=== PATIENT | female | born 1995 | race African-American/Black ===

== ENCOUNTER 2017-08-14 04:19 | Inpatient (IN) ==
[~2017-08-14 04:19] MED LIST: *HR* Oxytocin 10 UNIT/ML VIAL IM ONE; Famotidine 20 MG/2 ML VIAL IVP PRN; Naloxone 0.4 MG/ML INJ IVP PRN; Ondansetron 4 MG/2 ML VIAL IVP PRN
--- NOTE | 2017-08-14 04:20 | OB/GYN Procedure Note ---
Delivery - Delivery Date: 08/14/17 Provider: Izabella Mittal Intrapartum events: precipitous labor- <3hr Delivery induction: none Delivery monitor: external FHT, external uterine Anesthesia: none Estimated Blood Loss: 100 - (s) A Delivery Date: 08/14/17 Delivery Time: 03:39 Presentation: vertex Position: NOEMI Route of delivery: Gender: Female Viability: Viable Pounds: 4 Ounces: 7 Weight Gram: 2.025 kg at 1 minute: 8 at 5 mins: 7 Shoulder Dystocia: not encountered Specimens collected: cord blood Placenta: spontaneous Cord: 3 umbilical vessels - Repair Episiotomy: none Laceration Description: None - Complications Delivery complications: none Delivery comments: Patient arrived to unit with on perineum and began pushing. AROM for moderate amount of clear fluid. of viable female infant in the NOEMI position. No nuchal cord, no shoulder dystocia, and no meconium. Cord double clamped and cut, passed off to Special Care Nursery Team. Apgars 8 and 7 at one and five minutes of age. Perineum intact upon visual inspection. IM pitocin given due to no IV access. Dr Courtney called to room for delivery of placenta. 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 Patient given 800 mcg of Cytotec and IM Pitocin prior to my arrival. Placenta at introitus with large clot. With gentle traction and uterine support there was spontaneous delivery of the placenta which is being sent to pathology for further evaluation. Examination of the perineum, vagina and cervix revealed no lacerations. The uterus was firm at U -5. Estimated blood loss 100 mL's. Complications none
[2017-08-14 04:36] LABS: Amphetamine Screen,Urine Positive ng/mL (Cutoff=1000); Barbiturate Screen,Urine Negative ng/mL (Cutoff=200); Benzodiazepines Screen,Urine Negative ng/mL (Cutoff=200); Cannabinoid Screen,Urine Positive ng/mL (Cutoff = 50); Cocaine Screen,Urine Negative ng/mL (Cutoff= 300); Opiate Screen,Urine Positive ng/mL (Cutoff=300); Phencyclidine Screen,Urine Negative ng/mL (Cutoff=25)
[2017-08-14 04:40] LABS: Basophils % 0.3 %; Eosinophils # 0.1 K/mcL (0.0-0.6); Eosinophils % 0.3 %; Hematocrit 44.4 % (35.3-44.9); Hemoglobin 14.8 g/dL (11.5-15.4); Immature Granulocytes % 0.3 % (0-4); Mean Corpuscular HGB Conc 33.3 g/dL (31.6-35.5); Mean Corpuscular Hemoglobin 27.1 pg (28.0-33.3); Mean Corpuscular Volume 81.3 fL (83.0-100.0); Mean Platelet Volume 9.3 fL (9.4-12.4); Monocytes # 0.5 K/mcL (0.0-1.3); Monocytes % 3.2 %; Neutrophils # 11.8 K/mcL (1.6-8.9); Platelet Count 265 K/mcL (140-400); Red Blood Count 5.46 M/mcL (3.82-4.97); Red Cell Distribution Width 12.5 % (11.5-14.5); Segmented Neutrophils % 81.9 %
--- NOTE | 2017-08-14 04:55 | OB/GYN History & Physical ---
Date of Encounter: 08/14/17 Time of Encounter: 04:38 Assessment and Plan (1) 32 weeks gestation of Current visit: Yes Status: Acute Admit for labor Monitor blood pressure PIH labs POC per consult with Dr Courtney (2) Polysubstance (including opioids) dependence, daily use Current visit: Yes Status: Acute Social work consulted History of Present Illness Chief complaint: Labor HPI: Ms. Manley is a 22 year old at 33 weeks and 0 days gestation by third trimester ultrasound presents to labor and delivery in labor. She states she sought care late in due to being "scared" in relation to her polysubstance abuse. She states she does not have custody of her other children as they live with their fathers. She states she took a percocet earlier in the evening when she was in pain; she denies having a drug of choice and will "take what she I can get". She admits to being homeless, but is staying with her current boyfriend. She has had one visit with this . Her labs are as follows HIV NR RPR Negative Rubella positive Varicella positive Blood type B + Hep B NR Hep C NR Past Med Surg Social Fam HX - Past Medical History Medical history: non-contributory Psychiatric history: depression - Past Surgical History Surgical History: no surgical history - Social History Smoking Status: Current every day smoker Smokeless Tobacco Status: No Alcohol use: none Drug use: none - Family History Mother Living Status: Still Living Hx Family Cardiac Disorders: Yes (heart attack) Hx Family Respiratory Disorders: Yes (COPD) Hx Family Cancer: No Hx Family GI Disorders: No Hx Family Endocrine Disorder: No Hx Family Neuromuscular Disorders: No Hx Family Neurologic Disorders: No Hx Family HEENT Disorders: No Hx Family Autoimmune Disorders: No Obstetrical History - Pregnancies : 3 Para: 2 Term: 2 : 0 Ab's: 0 Livin Medications and Allergies Azithromycin [Zithromax Tri-Rajiv] 500 mg PO ONCE #2 tablet 01/27/17 [Rx] Clindamycin HCl [Cleocin HCl] 300 mg PO BID #14 cap 01/27/17 [Rx] Vit/Iron Fumarate/FA [ Tablet] 1 each PO DAILY #30 tablet 01/27 [Rx] 3 Allergy/AdvReac Type Severity Reaction Status Date / Time No Known Allergies Allergy Verified 02/27/16 08:16 Review of System OB All systems PM: reviewed and no additional remarkable complaints except as stated Exam - Constitutional Constitutional: well developed, well nourished, no acute distress, thin - HEENT HEENT: Normocephaly, Mucus Membranes Moist - Lungs Respiratory exam: CTAB - Cardiovascular Cardiovascular exam: RRR, +S1, +S2 - Abdomen Abdomen: Present: bowel sounds normal, gravid, non tender - Extremities Extremities exam: normal capillary refill, normal inspection, radial pulses palpable and symmetrical Deep Tendon Reflex Grade: 3+ Normal But Brisk - Vulva Vulva: bilateral: normal - Vagina Vagina: Present: normal moisture - Cervix Dilation: 10 Effacement: 100 Station: +3 - Uterus Uterus exam: Present: normal size, normal contour - Anus/Rectum Anus/Rectum: Present: normal perianal skin Results All other labs normal. - VTE Reasons for not Prescribing Prophylaxis: Treatment not Indicated - Low risk for VTE
[2017-08-14 04:59] LABS: Alanine Aminotransferase 75 Units/L (7-52); Aspartate Amino Transferase 66 Units/L (13-39); BUN/Creatinine Ratio 12 (6-26); Blood Urea Nitrogen 9 mg/dL (6-20); Lactate Dehydrogenase 224 Units/L (140-271); Uric Acid 8.3 mg/dL (2.3-7.6); eGFR For African Americans > 60 (> 60); eGFR For Non-African Americans > 60 (> 60)
[2017-08-14] MEDS ORDERED: hydrALAZINE 10 MG TABLET PO ONE ×2 (06:28→06:29)
[2017-08-14] MEDS ORDERED: Oxytocin 20 units/ LR 1000 mL 20 UNIT/1,000 ML BAG IVC SCH (06:49)
[2017-08-14] MEDS ORDERED: Measles/Mumps/Rubella Vacc 0.5 ML VIAL SQ PRN (06:49)
[2017-08-14] MEDS ORDERED: Acetaminophen 325 MG TABLET PO PRN (06:49)
[2017-08-14] MEDS: Ibuprofen 600 MG TABLET PO SCH ×4 (07:04→20:21)
[2017-08-14] MEDS ORDERED: Prenatal Vit/FA 1 EACH TABLET PO SCH (09:00)
[2017-08-14] MEDS ORDERED: *HR* Labetalol 20 MG/4 ML SYRINGE IVP STA ×2 (09:13→09:57)
--- NOTE | 2017-08-14 09:24 | Event Note ---
Date of Encounter: 08/14/17 Time of Encounter: 09:20 Notified of Patient's BPs and lab results. Discussed with Dr. Funes. Will start Magnesium sulfate with 4 gram loading dose and then 2 grams per hour. Will initiate bolaños catheter for strict I&Os. IV labetalol 20mg IVP to be given. Discussed POC with patient. Patient is Alert and Oriented Lungs: CTAB Heart: RRR DTRs: 1+ no clonus Extremities:No edema Abdomen: +BS, FF @ U/1
[2017-08-14] MEDS ORDERED: Calcium Gluconate 1,000 MG/10 ML VIAL IVPB ONE (10:04)
[2017-08-14 10:26] LABS: Alanine Aminotransferase 73 Units/L (7-52); Aspartate Amino Transferase 67 Units/L (13-39); BUN/Creatinine Ratio 14 (6-26); Blood Urea Nitrogen 9 mg/dL (6-20); Lactate Dehydrogenase 228 Units/L (140-271); Uric Acid 8.8 mg/dL (2.3-7.6); eGFR For African Americans > 60 (> 60); eGFR For Non-African Americans > 60 (> 60)
[2017-08-14] MEDS: Magnesium Sulfate 20 gm/500mL 20 GM/500 ML IV.SOLN IVC SCH ×2 (10:29→20:21)
[2017-08-14] MEDS: Ringers Solution, Lactated 1,000 ML ONE ×2 (10:29→23:41)
[2017-08-14 10:53] LABS: Basophils % 0.3 %; Eosinophils % 0.1 %; Hematocrit 36.3 % (35.3-44.9); Immature Granulocytes % 0.4 % (0-4); Lymphocytes # 2.4 K/mcL (0.6-4.6); Lymphocytes % 17.8 %; Mean Corpuscular HGB Conc 33.3 g/dL (31.6-35.5); Mean Corpuscular Hemoglobin 26.8 pg (28.0-33.3); Mean Corpuscular Volume 80.3 fL (83.0-100.0); Mean Platelet Volume 9.9 fL (9.4-12.4); Monocytes # 0.6 K/mcL (0.0-1.3); Neutrophils # 10.6 K/mcL (1.6-8.9); Platelet Count 273 K/mcL (140-400); Red Blood Count 4.52 M/mcL (3.82-4.97); Red Cell Distribution Width 12.2 % (11.5-14.5); Segmented Neutrophils % 77.4 %
[2017-08-14 10:56] LABS: Hemoglobin 12.1 g/dL (11.5-15.4)
[2017-08-14] MEDS ORDERED: miSOPROStol 100 MCG TABLET PO ONE (14:55)
[2017-08-14] MEDS ORDERED: Ringers Solution, Lactated 1,000 ML ONE (23:38)
[2017-08-15 04:37] LABS: Basophils % 0.3 %; Eosinophils # 0.1 K/mcL (0.0-0.6); Hematocrit 35.1 % (35.3-44.9); Hemoglobin 11.8 g/dL (11.5-15.4); Immature Granulocytes % 0.3 % (0-4); Lymphocytes # 2.9 K/mcL (0.6-4.6); Lymphocytes % 41.7 %; Mean Corpuscular HGB Conc 33.6 g/dL (31.6-35.5); Mean Corpuscular Hemoglobin 27.4 pg (28.0-33.3); Mean Corpuscular Volume 81.6 fL (83.0-100.0); Mean Platelet Volume 9.6 fL (9.4-12.4); Monocytes # 0.5 K/mcL (0.0-1.3); Monocytes % 7.8 %; Neutrophils # 3.3 K/mcL (1.6-8.9); Platelet Count 229 K/mcL (140-400); Red Cell Distribution Width 12.5 % (11.5-14.5); Segmented Neutrophils % 47.9 %
[2017-08-15 05:24] LABS: Alanine Aminotransferase 56 Units/L (7-52); Aspartate Amino Transferase 34 Units/L (13-39); BUN/Creatinine Ratio 9 (6-26); Blood Urea Nitrogen 6 mg/dL (6-20); Lactate Dehydrogenase 230 Units/L (140-271); Uric Acid 6.7 mg/dL (2.3-7.6); eGFR For African Americans > 60 (> 60); eGFR For Non-African Americans > 60 (> 60)
[2017-08-15] MEDS: Magnesium Sulfate 20 gm/500mL 20 GM/500 ML IV.SOLN IVC SCH (06:43)
[2017-08-15 07:48] VITALS: BP 146/99
--- NOTE | 2017-08-15 08:30 | Discharge Summary ---
Date of Encounter: 08/15/17 Time of Encounter: 08:27 - Discharge Diagnosis (1) Vaginal delivery Priority: Primary Status: Acute Comments: Routine care. Plan to discharge tomorrow. Patient wishes to sign out Against Medical Advice. She is meeting milestones and desires depo for contraception prior to leaving. (2) Pre-eclampsia Priority: Secondary Status: Acute Comments: Plan to continue magnesium sulfate for 24 hours Continue Labetalol po as scheduled Patient wishes to sign out against medical advice prior to 24 hrs Will rx Labetalol 200mg BID. Risk of seizure from PP preeclampsia discussed at length with pt. Return precautions given. Risk of stroke or from poorly controlled hypertension discussed at length as well. Pt verbalizes understanding of risks. POC discussed with Dr. Courtney. Qualifiers: Trimester: unspecified trimester Qualified Code(s): O14.90 - Unspecified pre-eclampsia, unspecified trimester (3) Polysubstance (including opioids) dependence, daily use Priority: Secondary Status: Acute Comments: Patient offered medical management and Subutex therapy in office. Patient declines. - Discharge Medications Prescriptions: Docusate [Colace] 100 mg PO BID #30 capsule Labetalol HCl 200 mg PO BID #60 tablet Home Medications: Azithromycin [Zithromax Tri-Rajiv] 500 mg PO ONCE #2 tablet 01/27/17 [Rx] Clindamycin HCl [Cleocin HCl] 300 mg PO BID #14 cap 01/27/17 [Rx] Vit/Iron Fumarate/FA [ Tablet] 1 each PO DAILY #30 tablet 01/27 [Rx] Acetaminophen [Tylenol] 650 mg PO Q6HR PRN tablet 08/15/17 [Rx] Docusate [Colace] 100 mg PO BID #30 capsule 08/15/17 [Rx] Ibuprofen [Motrin] 600 mg PO Q6HR tablet 08/15/17 [Rx] Labetalol HCl 200 mg PO BID #60 tablet 08/15/17 [Rx] Allergies/Adverse Reactions: 3 Allergy/AdvReac Type Severity Reaction Status Date / Time No Known Allergies Allergy Verified 02/27/16 08:16 Data Procedures and tests throughout hospitalization: Laboratory Tests 08/14/17 08/14/17 08/14/17 04:18 04:30 04:30 WBC 14.4 H RBC 5.46 H Hgb 14.8 D Hct 44.4 MCV 81.3 L MCH 27.1 L MCHC 33.3 RDW 12.5 Plt Count 265 MPV 9.3 L Immature Gran % 0.3 Seg Neutrophils % 81.9 Lymphocytes % 14.0 Monocytes % 3.2 Eosinophils % 0.3 Basophils % 0.3 Neutrophils # 11.8 H Lymphocytes # 2.0 Monocytes # 0.5 Eosinophils # 0.1 Basophils # 0.0 BUN 9 Creatinine 0.74 Est GFR ( Amer) > 60 Est GFR (Non-Af Amer) > 60 BUN/Creatinine Ratio 12 Uric Acid 8.3 H AST 66 H ALT 75 H Lactate Dehydrogenase 224 Urine Opiates Screen Positive H Ur Barbiturates Screen Negative Ur Phencyclidine Scrn Negative Ur Amphetamines Screen Positive H U Benzodiazepines Scrn Negative Urine Cocaine Screen Negative U Marijuana (THC) Screen Positive H 08/14/17 08/14/17 08/15/17 09:42 09:42 04:21 WBC 13.6 H 6.9 RBC 4.52 4.30 Hgb 12.1 D 11.8 Hct 36.3 35.1 L MCV 80.3 L 81.6 L MCH 26.8 L 27.4 L MCHC 33.3 33.6 RDW 12.2 12.5 Plt Count 273 229 MPV 9.9 9.6 Immature Gran % 0.4 0.3 Seg Neutrophils % 77.4 47.9 Lymphocytes % 17.8 41.7 Monocytes % 4.0 7.8 Eosinophils % 0.1 2.0 Basophils % 0.3 0.3 Neutrophils # 10.6 H 3.3 Lymphocytes # 2.4 2.9 Monocytes # 0.6 0.5 Eosinophils # 0.0 0.1 Basophils # 0.0 0.0 BUN 9 Creatinine 0.65 Est GFR ( Amer) > 60 Est GFR (Non-Af Amer) > 60 BUN/Creatinine Ratio 14 Uric Acid 8.8 H AST 67 H ALT 73 H Lactate Dehydrogenase 228 Urine Opiates Screen Ur Barbiturates Screen Ur Phencyclidine Scrn Ur Amphetamines Screen U Benzodiazepines Scrn Urine Cocaine Screen U Marijuana (THC) Screen 08/15/17 04:21 WBC RBC Hgb Hct MCV MCH MCHC RDW Plt Count MPV Immature Gran % Seg Neutrophils % Lymphocytes % Monocytes % Eosinophils % Basophils % Neutrophils # Lymphocytes # Monocytes # Eosinophils # Basophils # BUN 6 Creatinine 0.69 Est GFR ( Amer) > 60 Est GFR (Non-Af Amer) > 60 BUN/Creatinine Ratio 9 Uric Acid 6.7 AST 34 ALT 56 H Lactate Dehydrogenase 230 Urine Opiates Screen Ur Barbiturates Screen Ur Phencyclidine Scrn Ur Amphetamines Screen U Benzodiazepines Scrn Urine Cocaine Screen U Marijuana (THC) Screen Labs on day of discharge: Labs from last 24 hours 08/15/17 08/15/17 08/14/17 04:21 04:21 09:42 WBC 6.9 RBC 4.30 Hgb 11.8 Hct 35.1 L MCV 81.6 L MCH 27.4 L MCHC 33.6 RDW 12.5 Plt Count 229 MPV 9.6 Immature Gran % 0.3 Seg Neutrophils % 47.9 Lymphocytes % 41.7 Monocytes % 7.8 Eosinophils % 2.0 Basophils % 0.3 Neutrophils # 3.3 Lymphocytes # 2.9 Monocytes # 0.5 Eosinophils # 0.1 Basophils # 0.0 BUN 6 9 Creatinine 0.69 0.65 Est GFR ( Amer) > 60 > 60 Est GFR (Non-Af Amer) > 60 > 60 BUN/Creatinine Ratio 9 14 Uric Acid 6.7 8.8 H AST 34 67 H ALT 56 H 73 H Lactate Dehydrogenase 230 228 08/14/17 09:42 WBC 13.6 H RBC 4.52 Hgb 12.1 D Hct 36.3 MCV 80.3 L MCH 26.8 L MCHC 33.3 RDW 12.2 Plt Count 273 MPV 9.9 Immature Gran % 0.4 Seg Neutrophils % 77.4 Lymphocytes % 17.8 Monocytes % 4.0 Eosinophils % 0.1 Basophils % 0.3 Neutrophils # 10.6 H Lymphocytes # 2.4 Monocytes # 0.6 Eosinophils # 0.0 Basophils # 0.0 BUN Creatinine Est GFR ( Amer) Est GFR (Non-Af Amer) BUN/Creatinine Ratio Uric Acid AST ALT Lactate Dehydrogenase Date of admission: 08/14/17 04:19 Consults: 08/14/17 06:49 Consult to Park Worker Supervisor [CONS] Routine Comment: Vaginal delivery, consult needed Consult to Electrotyper [CONS] Routine Reason for SW Consult: 32 week precipitous delivery, 1 PN visit, admits to [facility] within 12 hours of delivery Discharging clinician: Arabella Pérez Anticipated date of discharge: 08/15/17 - Patient Status Disposition: Left Against Medical Advice Condition: Good Functional capacity at discharge: independent ambulation Overall status at discharge: patient is progressing back to baseline - Discharge Instructions - Diet and Activity Activity: resume usual activities as tolerated Diet: regular diet Hospital Course Reason for admission: active labor, labor Delivery: Episiotomy: none Laceration: none Other procedures: none complications: other (pre-eclampsia) Discharge diagnosis: delivery baby: female Hospital course: Delivery Date: 08/14/17 Provider: Izabella Mittal Intrapartum events: precipitous labor- <3hr Delivery induction: none Delivery monitor: external FHT, external uterine Anesthesia: none Estimated Blood Loss: 100 - (s) A Delivery Date: 08/14/17 Delivery Time: 03:39 Presentation: vertex Position: NOEMI Route of delivery: Gender: Female Viability: Viable Pounds: 4 Ounces: 7 Weight Gram: 2.025 kg at 1 minute: 8 at 5 mins: 7 Shoulder Dystocia: not encountered Specimens collected: cord blood Placenta: spontaneous Cord: 3 umbilical vessels - Repair Episiotomy: none Laceration Description: None - Complications Delivery complications: none Delivery comments: Patient arrived to unit with on perineum and began pushing. AROM for moderate amount of clear fluid. of viable female in the NOEMI position. No nuchal cord, no shoulder dystocia, and no meconium. Cord double clamped and cut, passed off to Special Care Nursery Team. Apgars 8 and 7 at one and five minutes of age. Perineum intact upon visual inspection. IM pitocin given due to no IV access. Dr Courtney called to room for delivery of placenta. - Disposition Mom disposition: stable in LDR [place] disposition: stable in LDR - Comments Comments: Called to attend this 32 wk precipitous pcu rn delivery d/t placenta not delivering. Patient given 800 mcg of Cytotec and IM Pitocin prior to my arrival. Placenta at introitus with large clot. With gentle traction and uterine support there was spontaneous delivery of the placenta which is being sent to pathology for further evaluation. Examination of the perineum, vagina and cervix revealed no lacerations. The uterus was firm at U -5. Estimated blood loss 100 mL's. Complications none Time Attestation: Total time spent providing and/or coordinating discharge services: Exam - Constitutional Vitals: Temp Pulse Resp BP Pulse Ox 97.8 F 88 14 146/99 100 08/15/17 07:31 08/15/17 07:31 08/15/17 07:31 08/15/17 07:31 08/15/17 07:31 General appearance IM: mild distress (Patient requesting the Mag to be discontinued, IV and bolaños to be removed. Wishes to sign out AMA. Writhing around in the bed.), A&O X 3 - Respiratory Respiratory exam: Present: CTAB - Cardiovascular Cardiovascular exam IM: Present: RRR, +S1, +S2 - GI/Abdominal GI/Abdominal exam IM: normal bowel sounds, soft - Rectal Rectal exam: deferred - Uterine Tone: Firm Uterus Position: 1 Finger Below Umbilicus, Midline - Extremities Exam Extremities exam IM: Present: full ROM, normal capillary refill, normal inspection - Neurological Exam Neurological exam: alert, oriented X3, reflexes normal
[2017-08-15] MEDS ORDERED: Etonogestrel 68 MG IMPLANT IL ONE (09:07)
[2017-08-15] MEDS ORDERED: Lidocaine -MPF 1% 2 ML VIAL ID ONE (09:08)
== END 2017-08-15 10:00 | disposition left against medical advice (07) | DRG 560 ==
LOC: 1NENULAB → 1NENUOBS 06:49
PROVIDERS: ADMIT Obstetrics & Gynecology; ATTEND Obstetrics & Gynecology

== ENCOUNTER 2017-11-14 03:22 | Inpatient (IN) ==
[2017-11-14] MEDS ORDERED: Naloxone 0.4 MG/ML INJ IVP PRN (09:36)
[2017-11-14] MEDS ORDERED: Furosemide 20 MG TABLET PO PRN (09:50)
--- NOTE | 2017-11-14 09:51 | Internal Med History&Physical ---
Date of Encounter: 11/14/17 Time of Encounter: 09:47 Internal Medicine - H&P: HPI Chief complaint: Chest pain, shortness of breath Admitted From: Hospital to Hospital Transfer Plans for Post Hospital Care: Home History of present illness: Ms. Manley is a 22 year old female delivered on August 2017 at [facility] and left AMA presented to [facility] on 2017 with complaint of chest pain, shortness of breath on exertion for a few weeks and patient got admitted over there. Patient had extensive cardiac evaluation and diagnosed cardiomyopathy with LV mural thrombus, acute systolic heart failure with ejection fraction less than 15%, moderate to severe MR and TR and JAX also done. Patient was restarted on heparin drip and also Coumadin and there was planned to discharge on appropriate medication including aspirin, beta britney, lisinopril, statin, Aldactone and Coumadin but patient left AMA. On the same day patient had presyncope attack on the parking lot and brought back to [facility] and patient again left AMA but presented to [place] [facility]. Patient also had abnormal EKG therefore transferred to [facility] for further evaluation. During my evaluation patient denied chest pain and shortness of breath at this time. Patient also had a headache that considered migraine after finding CT and MRI negative at [facility]. Patient denies fever, chills, nausea, vomiting, headache better, abdominal pain , urinary complaint, abnormal vaginal discharge, diarrhea, constipation relieved. Patient had history of STD and drug abuse such as marijuana, amphetamine. Past Med Surg Social Fam HX - Past Medical History Medical history: non-contributory, other Psychiatric history: depression - Past Surgical History Surgical History: no surgical history - Social History Smoking Status: Current every day smoker Smokeless Tobacco Status: No Alcohol use: none Drug use: opiates, marijuana, methamphetamine - Family History Mother Adopted: No Family Member Ethnicity: Non- Living Status: Still Living Hx Family Cardiac Disorders: Yes (Mother has had "heart attack") Hx Family Respiratory Disorders: Yes (COPD) Hx Family Cancer: No Hx Family GI Disorders: No Hx Family Endocrine Disorder: No Hx Family Neuromuscular Disorders: No Hx Family Neurologic Disorders: No Hx Family HEENT Disorders: No Hx Family Autoimmune Disorders: No Internal Medicine - H&P: Meds Azithromycin [Zithromax Tri-Rajiv] 500 mg PO ONCE #2 tablet 01/27/17 [Rx] Clindamycin HCl [Cleocin HCl] 300 mg PO BID #14 cap 01/27/17 [Rx] Vit/Iron Fumarate/FA [ Tablet] 1 each PO DAILY #30 tablet 01/27 [Rx] Acetaminophen [Tylenol] 650 mg PO Q6HR PRN tablet 08/15/17 [Rx] Docusate [Colace] 100 mg PO BID #30 capsule 08/15/17 [Rx] Ibuprofen [Motrin] 600 mg PO Q6HR tablet 08/15/17 [Rx] Labetalol HCl 200 mg PO BID #60 tablet 08/15/17 [Rx] 3 Allergy/AdvReac Type Severity Reaction Status Date / Time No Known Allergies Allergy Verified 02/27/16 08:16 All Systems PM: A 10-system review of systems was performed and is negative for pertinent findings except as documented above in the HPI. - Constitutional Vitals: Temp Pulse Resp BP Pulse Ox 98.1 F 85 16 112/72 99 11/14/17 07:48 11/14/17 07:48 11/14/17 07:48 11/14/17 07:48 11/14/17 07:48 Exam: General appearance: No acute distress, A&O X 3 Head exam: Atraumatic Eye exam: EOMI, PERRLA ENT exam: Moist oral mucosa Neck nontender, supple Respiratory exam: Clear to auscultation bilaterally Cardiovascular exam: Regular rate and rhythm, no systolic murmur Abdominal exam: Soft, nontender, nondistended, positive bowel sounds Extremities exam: No calf tenderness, no pedal edema Present: Skin-no rash, warm, dry, intact Neurological exam: Alert, awake, oriented 3, CN II-XII intact, no focal deficits. No facial droop. Normal speech. Normal gait. Romberg sign negative - Assessment and plan (1) Cardiomyopathy Current Visit: No Status: Acute Assessment and plan: with LV thrombus. Acute systolic heart failure with ejection fraction less than 15%. Talk to on-call associate faculty and discussed the plan and he agreed to continue Lovenox, warfarin, Aldactone, lisinopril, Coreg, Lasix , statin. Daily PT/INR. Heart catheter was done on 11/10/2017 with normal coronary vessels. Review of the documents sent from [facility]. Patient had abnormal EKG therefore serial troponin will be done in continue above-mentioned medicine. 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 Will continue above-mentioned medicine. Patient will need repeat echocardiogram as per associate faculty advice. Patient has noncompliance issue therefore will also consult executive secretary social welfare. Qualifiers: Heart failure type: systolic Heart failure chronicity: unspecified Qualified Code(s): I50.20 - Unspecified systolic (congestive) heart failure (3) History of UTI Current Visit: No Status: Acute Assessment and plan: Urine culture was positive for Klebsiella and patient got treated over there but will repeat urine analysis with urine culture. Patient denies any urinary complaint at this time. Will consider antibiotic based on culture report. (4) DVT prophylaxis Current Visit: Yes Status: Acute Assessment and plan: Continue Lovenox. - Time Spent With Patient Total time spent is greater than 50% in coordination of care (as documented) at patient's floor/unit and/or counseling patient: Greater than 35 minutes
[2017-11-14 10:06] LABS: Basophils # 0.1 K/mcL (0.0-0.2); Basophils % 0.5 %; Eosinophils # 0.5 K/mcL (0.0-0.6); Hemoglobin 10.4 g/dL (11.5-15.4); Immature Granulocytes % 0.2 % (0-4); Lymphocytes # 2.9 K/mcL (0.6-4.6); Lymphocytes % 30.3 %; Mean Corpuscular HGB Conc 33.5 g/dL (31.6-35.5); Mean Corpuscular Hemoglobin 26.7 pg (28.0-33.3); Mean Corpuscular Volume 79.5 fL (83.0-100.0); Mean Platelet Volume 9.2 fL (9.4-12.4); Monocytes # 0.6 K/mcL (0.0-1.3); Monocytes % 6.6 %; Neutrophils # 5.5 K/mcL (1.6-8.9); Platelet Count 217 K/mcL (140-400); Red Cell Distribution Width 13.2 % (11.5-14.5); Segmented Neutrophils % 57.4 %
[2017-11-14 10:12] LABS: INR 1.6; Prothrombin Time 17.3 Seconds (9.4-12.1)
[2017-11-14 10:15] LABS: Activated Partial Thrombo Time 41.3 Seconds (26.0-36.0)
[2017-11-14 10:28] LABS: Alanine Aminotransferase 22 Units/L (7-52); Albumin 3.2 g/dL (3.5-5.7); Albumin/Globulin Ratio 1.1 (1.1-2.2); Alkaline Phosphatase 61 Units/L (34-104); Aspartate Amino Transferase 20 Units/L (13-39); BUN/Creatinine Ratio 15 (6-26); Bilirubin,Total 0.1 mg/dL (0.3-1.0); Blood Urea Nitrogen 12 mg/dL (6-20); Calcium 8.8 mg/dL (8.6-10.3); Carbon Dioxide 24 mEq/L (23-29); Chloride 108 mEq/L (98-107); Globulin 2.9 g/dL (2.4-3.5); Glucose 91 mg/dL (70-105); Osmolality,Calculated 283 (280-300); Potassium 3.9 mEq/L (3.5-5.1); Sodium 137 mEq/L (136-145); Total Protein 6.1 g/dL (6.4-8.9); eGFR For African Americans > 60 (> 60); eGFR For Non-African Americans > 60 (> 60)
--- NOTE | 2017-11-14 11:38 | Event Note ---
Date of Encounter: 11/14/17 Time of Encounter: 11:33 - Cardiology Event Note Recent diagnosis of cardiomyopathy at [facility], per patient, [facility] with no significant CAD. Non-ischemic cardiomyopathy. Also reportedly diagnosed with LV thrombus and was placed on coumadin. Patient signed out AMA from [facility] and presented to [facility]. INR subtherapuetic at 1.6. For LV thrombus, recommend INR 2-3. Recommend bridging. For non-ischemic cardiomyopathy, on BB and dorina inhibitor, aldactone. Euvolemic on exam. Recent [facility] with no significant CAD. Recommend continuing current regimen and re-check TTE in 3 months as outpatient. Troponin mildly elevated, denies chest pain. Recent [facility] with no signifcant CAD, ECG with new T wave inversions, however no ECGs to review from [facility]. Unknown troponins from [facility]. Would recommend contiuning to trend x3 sets. Stressed importance of remaining inpatient until INR therapeutic with patient. Stress importance of close outpatient cardiology follow up with pateint. Pateint states understanding. Cardiology will follow in outpatient setting. Follow up set. Prefers to follow in [place]. Discussed and reviewed with .
[2017-11-14 13:05] LABS: Bilirubin,Urine Negative (Negative); Blood,Urine Negative (Negative); Clarity,Urine Cloudy (Clear); Color,Urine Yellow (Yellow); Glucose,Urine (UA) Normal (Normal); Ketones,Urine Negative (Negative); Leukocyte Esterase,Urine Moderate (Negative); Nitrite,Urine Negative (Negative); Protein,Urine Negative (Neg-Trace); Specific Gravity,Urine 1.017 (1.010-1.025); Urobilinogen,Urine Normal (Normal)
[2017-11-14 13:07] LABS: Bacteria,Urine None Seen per hpf (None-Few); Hyaline Casts,Urine None Seen per lpf (None-Few); RBC,Urine 0-3 per hpf (0-3); Squamous Epithelial Cell,Urine Many per lpf (None-Few); WBC,Urine 15-30 per hpf (0-3)
[2017-11-14 13:50] LABS: Amphetamine Screen,Urine Negative ng/mL (Cutoff=1000); Barbiturate Screen,Urine Positive ng/mL (Cutoff=200); Benzodiazepines Screen,Urine Negative ng/mL (Cutoff=200); Cannabinoid Screen,Urine Positive ng/mL (Cutoff = 50); Cocaine Screen,Urine Negative ng/mL (Cutoff= 300); Opiate Screen,Urine Negative ng/mL (Cutoff=300); Phencyclidine Screen,Urine Negative ng/mL (Cutoff=25)
[2017-11-14] MEDS ORDERED: *HR* Warfarin 5 MG TABLET PO ONE (18:00)
[2017-11-14] MEDS: *HR* Enoxaparin 40 MG/0.4 ML SYRINGE SQ SCH (18:33)
[2017-11-15] MEDS: *HR* Enoxaparin 40 MG/0.4 ML SYRINGE SQ SCH ×2 (05:44→17:44)
[2017-11-15 07:32] LABS: Chol/HDL Ratio 4.4 (0-4.9)
[2017-11-15] MEDS ORDERED: Aspirin 81 MG TAB.CHEW PO SCH (09:00)
[2017-11-15] MEDS: Spironolactone 25 MG TABLET PO SCH (09:03)
[2017-11-15 10:11] LABS: Prothrombin Time 21.7 Seconds (9.4-12.1)
--- NOTE | 2017-11-15 11:55 | Event Note ---
Date of Encounter: 11/15/17 Time of Encounter: 11:54 - Cardiology Event Note Patient was ordered and approved for [employer] vest from [facility]. Called and spoke [facility] phone representative, who states orders have been received and vest has been approved. Gis Engineer states they will call with and ETA for vest fitting.
--- NOTE | 2017-11-15 14:49 | Internal Med Progress Note ---
Date of Encounter: 11/15/17 Time of Encounter: 10:00 - Assessment and plan (1) Congestive heart failure Current Visit: No Status: Inactive Assessment and plan: Compensated chronic systolic congestive heart failure with poor ejection fraction. Her last noted ejection fraction was as low as 15%. Patient continues to be on diuretics and beta blockers Chace inhibitors and Aldactone. She appears euvolemic at this point. This is most likely from cardiomyopathy. Her left heart catheter was negative for ischemic disease and she will need a follow-up echo in 3 months as an outpatient. Patient also needs a LifeVest to be set up prior to discharge this was already improved at [facility]. Cardiology is aware on this Qualifiers: Heart failure type: systolic Heart failure chronicity: unspecified Qualified Code(s): I50.20 - Unspecified systolic (congestive) heart failure (2) Left ventricular thrombosis Current Visit: Yes Status: Acute Assessment and plan: Patient was found to have a left ventricular thrombosis [facility] but left without being properly bridged while there She is now on heparin to Coumadin bridging and her INR today is therapeutic at 2. We will give her 1 mg of Coumadin as per pharmacy dosing and if therapeutic for another 24 hours that he can wean off heparin and be discharged to follow with Coumadin clinic as an outpatient Patient also wants to set up a primary care appointment through [place] upon discharge (3) Cardiomyopathy Current Visit: No Status: Inactive Assessment and plan: Post cardiomyopathy with LV thrombus will need to be seen in outpatient for sure upon discharge. 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 Patient denies any urinary complaint at this time. Will consider antibiotic based on culture report. (5) DVT prophylaxis Current Visit: Yes Status: Acute Assessment and plan: Already on AC - Time Spent With Patient Total time spent is greater than 50% in coordination of care (as documented) at patient's floor/unit and/or counseling patient: Greater than 35 minutes - Subjective Interval history: Patient was seen sitting comfortably in her room denies any shortness of breath , chest pain, nausea or vomiting - Constitutional Vitals: Temp Pulse Resp BP Pulse Ox 97.5 F L 86 14 107/63 100 11/15/17 12:15 11/15/17 12:15 11/15/17 12:15 11/15/17 12:15 11/15/17 12:15 Exam: GENERAL: Alert, no distress, cooperative EYES: PERRLA, EOMI EARS: External ears normal, canals clear OROPHARYNX: Lips, mucosa, and tongue normal. Teeth and gums normal. Oropharynx normal. NECK: No jugulovenous distention, No carotid bruits, Carotid pulse normal contour, Supple LUNGS: Lungs clear to auscultation, Good diaphragmatic excursion CARDIAC: Normal S1 and S2; no rubs, murmurs, or gallops ABDOMEN: Abdomen soft, non-tender, BS normal, No masses or organomegaly EXTREMITIES: Extremities normal, no deformities, edema, clubbing or skin discoloration. Good capillary refill., No ulcers NEURO: Gait normal. Reflexes normal and symmetric. Sensation grossly intact, Cranial nerves II-XII intact PULSES: 2+ radial, 2+ carotid Rest of the exam is non contributory Internal Medicine: Result - Labs CBC & Chem 7: 11/14/17 09:55 11/14/17 09:55 Labs: Cardiac Enzymes 11/14/17 11/14/17 Range/Units 15:01 22:01 Troponin I 0.04 H* 0.04 H* (< 0.04) ng/mL - ABG Interpretation ABG results: PT/INR, D-dimer PT 21.7 Seconds (9.4-12.1) H 11/15/17 09:35 - Impressions Impressions Chest X-Ray 11/14/17 09:40 IMPRESSION: Stable exam from earlier exam performed today. No new acute cardiopulmonary findings. D/ / Yamile Thapa MD / Yamile Thapa MD Interpreting Provider: Yamile Thapa MD Consult Discharge Plan - Plan Referrals: NONE,PCP [Primary Care Provider] -
[2017-11-15] MEDS ORDERED: Warfarin perPT PO PRN (18:00)
[2017-11-15] MEDS ORDERED: *HR* Warfarin 3 MG TABLET PO ONE (18:00)
[2017-11-16] MEDS: *HR* Acetaminophen w/Cod 300-30 mg 1 TAB TABLET PO PRN (00:24)
[2017-11-16] MEDS: *HR* Enoxaparin 40 MG/0.4 ML SYRINGE SQ SCH ×2 (05:46→16:53)
--- NOTE | 2017-11-16 06:01 | Electrocardiograph Report ---
[employer] Test Date: 2017-11-14 Pat Name: Sophia Manley Department: [id number] Room: 2S4 Gender: F Construction Stonemason: : 1995 Requested By: Nancy Huitron Order Number: [id number] Reading MD: William Vasquez Measurements Intervals [place] Rate: 91 P: 51 HI: 167 QRS: 23 QRSD: 79 T: 190 QT: 393 QTc: 442 Interpretive Statements SINUS RHYTHM POSSIBLE LEFT ATRIAL ENLARGEMENT [-0.1mV P WAVE IN V1/V2] POSSIBLE ANTERIOR MYOCARDIAL INFARCTION [30 ms Q WAVE IN V3/V4, OR R < 0.2 mV IN V4], OF INDETERMINATE AGE MODERATE T-WAVE ABNORMALITY, CONSIDER LATERAL ISCHEMIA [-0.1+ mV T WAVE IN I/aVL/V5/V6] MODERATE T-WAVE ABNORMALITY, CONSIDER INFERIOR ISCHEMIA [-0.1+ mV T WAVE IN II/aVF] INTERPRETATION BASED ON A DEFAULT AGE OF 40 YEARS Electronically Signed On 11-16-2017 5:59:44 EDT by William Vasquez
[2017-11-16 06:36] LABS: INR 1.7; Prothrombin Time 18.6 Seconds (9.4-12.1)
[2017-11-16] MEDS: Spironolactone 25 MG TABLET PO SCH (08:40)
--- NOTE | 2017-11-16 11:36 | Internal Med Progress Note ---
Date of Encounter: 11/16/17 Time of Encounter: 10:30 - Assessment and plan (1) Congestive heart failure Current Visit: No Status: Inactive Assessment and plan: Compensated chronic systolic congestive heart failure with poor ejection fraction. Her last noted ejection fraction was as low as 15%. Patient continues to be on diuretics and beta blockers Chace inhibitors and Aldactone. She appears euvolemic at this point. This is most likely from cardiomyopathy. Her left heart catheter was negative for ischemic disease and she will need a follow-up echo in 3 months as an outpatient. Patient also needs a LifeVest to be set up prior to discharge this was already improved at [facility]. Cardiology is aware on this 11/16/17- she is clinically euvolemic. will continue to monitor cosely. Life vest has been assigned to her. Qualifiers: Heart failure type: systolic Heart failure chronicity: unspecified Qualified Code(s): I50.20 - Unspecified systolic (congestive) heart failure (2) Left ventricular thrombosis Current Visit: Yes Status: Acute Assessment and plan: Patient was found to have a left ventricular thrombosis [facility] but left without being properly bridged while there She is now on heparin to Coumadin bridging and her INR today is therapeutic at 2. We will give her 1 mg of Coumadin as per pharmacy dosing and if therapeutic for another 24 hours that he can wean off heparin and be discharged to follow with Coumadin clinic as an outpatient Patient also wants to set up a primary care appointment through [place] upon discharge 11/16/17 INR today is 1.7. Will need higher dose of coumadin tonight. Will have pharmacy look into this. i explained to the patient that I will need to keep her in today since she is sucha high risk for being lost to followup. She needs to be therapeutic on her INR . 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 no CP / SOB - Constitutional Vitals: Temp Pulse Resp BP Pulse Ox 97.5 F L 89 17 114/82 99 11/16/17 06:43 11/16/17 06:43 11/16/17 06:43 11/16/17 06:43 11/16/17 06:43 - Head Head exam: Present: atraumatic, normocephalic - Respiratory Respiratory exam: Present: CTAB. Absent: accessory muscle use, rales, rhonchi, wheezes - Cardiovascular Additional comments: RRR, no murmurs Internal Medicine: Result - Labs CBC & Chem 7: 11/14/17 09:55 11/14/17 09:55 - ABG Interpretation ABG results: PT/INR, D-dimer PT 18.6 Seconds (9.4-12.1) H 11/16/17 05:53 - VTE Reasons for not Prescribing Prophylaxis: Not indicated-Anticoagulated or INR therapeutic Consult Discharge Plan - Plan Referrals: NONE,PCP [Primary Care Provider] -
[2017-11-16] MEDS: *HR* Warfarin 5 MG TABLET PO SCH (16:53)
[2017-11-17 05:00] LABS: INR 1.6
[2017-11-17] MEDS: *HR* Enoxaparin 40 MG/0.4 ML SYRINGE SQ SCH (05:48)
[2017-11-17] MEDS: Spironolactone 25 MG TABLET PO SCH (08:54)
--- NOTE | 2017-11-17 09:51 | Discharge Summary ---
- NOTES TO OUTPATIENT PROVIDER Notes to Outpatient Provider: This patient has post cardiomyopathy with a ejection fraction of 15% and has been fitted with a LifeVest which has been arranged for her. She also has a left ventricular thrombus for which she is currently getting bridged with Lovenox and Coumadin but she is not therapeutic. The patient wants to sign out AGAINST MEDICAL ADVICE and understands the risks involved in doing so. I have arranged for 5 days of Lovenox prescription and Coumadin 5 mg prescriptions daily and have an INR checked tomorrow that is 11/18/2017. She does not have a primary care physician but would like to set up care at [facility] and we are in the process of arranging that for her. She is otherwise any high-risk for morbidity Orders not resulted at time of discharge: Pending orders 11/18/17 04:00 PT/INR [Prothrombin Time INR] [COAG] AM 0400 11/19/17 04:00 PT/INR [Prothrombin Time INR] [COAG] AM 0400 Date of Encounter: 11/17/17 Time of Encounter: 09:49 - Discharge Diagnosis (1) Congestive heart failure Priority: Primary Status: Inactive Qualifiers: Heart failure type: systolic Heart failure chronicity: unspecified Qualified Code(s): I50.20 - Unspecified systolic (congestive) heart failure (2) Left ventricular thrombosis Priority: Secondary Status: Acute (3) Cardiomyopathy Priority: Secondary Status: Inactive Qualifiers: Cardiomyopathy type: peripartum Qualified Code(s): 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 Manley is a 22 year old female who has a significant history of IV drug abuse and multiple recent AGAINST MEDICAL ADVICE discharges from [facility] who was admitted with the cardiomyopathy as well as left ventricle thrombus. The patient received cardiac care while in this hospital and medications have been optimized including beta blockers, dorina inhibitors, diuretics in addition to getting a LifeVest arranged for her. Her INR needs to be between 2 and 3 from the LV thrombus standpoint which has been a hard thing to treat while in-house. For the last 2 days she has been subtherapeutic and we have been juggling with the Coumadin dosing however she does not want to stay in the hospital anymore due to personal reasons and wants to sign out AGAINST MEDICAL ADVICE. She understands all the risks involved and still wants to leave. For completion of therapy I will give her prescriptions for Coumadin, Lovenox and have asked her to check her INR tomorrow with a primary care provider for which she efforts are underway to arrange for an appointment. I will also give her prescriptions for her cardiac meds to help with the most I can. Discharge discussed with: patient, nurse Time spent discussing smoking cessation with patient: more than 10 minutes - Time Spent with Patient Total time spent providing and/or coordinating discharge services: Greater than 30 minutes - Discharge Medications Home Medications: Atorvastatin [Lipitor] 20 mg PO HS #60 tablet 11/17/17 [Rx] Carvedilol [Coreg] 25 mg PO BIDWM #60 tablet 11/17/17 [Rx] Enoxaparin [Lovenox] 50 mg SQ Q12HCO #10 syringe 11/17/17 [Rx] Furosemide [Lasix] 20 mg PO DAILY PRN #30 tablet 11/17/17 [Rx] Lisinopril [Zestril] 5 mg PO DAILY #30 tablet 11/17/17 [Rx] Spironolactone [Aldactone] 25 mg PO DAILY #30 tablet 11/17/17 [Rx] Warfarin [Coumadin] 5 mg PO 1800 #30 tablet 11/17/17 [Rx] Allergies/Adverse Reactions: 3 Allergy/AdvReac Type Severity Reaction Status Date / Time No Known Allergies Allergy Verified 11/14/17 12:04 Date of admission: 11/16/17 09:28 Primary care physician: PCP NONE Consults: 11/14/17 10:12 Consult to Multimedia Project Manager [CONS] Routine Reason for SW Consult: d/c plan 11/15/17 09:16 Consult for Pharmacy Education [CONS] Routine Reason for Consult: Coumadin bridging Call Completed: No - Constitutional Vitals: Temp Pulse Resp BP Pulse Ox 98.0 F 80 16 115/80 100 11/17/17 07:28 11/17/17 07:28 11/17/17 07:28 11/17/17 07:28 11/17/17 07:28 Exam: GENERAL: Alert, no distress, cooperative EYES: PERRLA, EOMI EARS: External ears normal, canals clear OROPHARYNX: Lips, mucosa, and tongue normal. Teeth and gums normal. Oropharynx normal. NECK: No jugulovenous distention, No carotid bruits, Carotid pulse normal contour, Supple LUNGS: Lungs clear to auscultation, Good diaphragmatic excursion CARDIAC: Normal S1 and S2; no rubs, murmurs, or gallops ABDOMEN: Abdomen soft, non-tender, BS normal, No masses or organomegaly EXTREMITIES: Extremities normal, no deformities, edema, clubbing or skin discoloration. Good capillary refill., No ulcers NEURO: Gait normal. Reflexes normal and symmetric. Sensation grossly intact, Cranial nerves II-XII intact PULSES: 2+ radial, 2+ carotid Rest of the exam is non contributory - Patient Status Disposition: Left Against Medical Advice Condition: Fair Functional capacity at discharge: independent ambulation Overall status at discharge: patient is progressing back to baseline - Discharge Instructions Follow Up With: NONE,PCP [Primary Care Provider] - - Diet and Activity Activity: resume usual activities as tolerated Diet: regular diet - VTE Reasons for not Prescribing Prophylaxis: Not indicated-Anticoagulated or INR therapeutic
--- NOTE | 2017-11-17 10:50 | Event Note ---
Date of Encounter: 11/17/17 Time of Encounter: 10:49 Patient has now decided to stay instead of signing out AMA. I spoke with the pharmacist who has arranged on her medications for whenever she is discharged. For now plan is to continue to treat the same way to continue to bridge her with Coumadin
[2017-11-17] MEDS: *HR* Warfarin 5 MG TABLET PO SCH (17:18)
[2017-11-17] MEDS: *HR* Enoxaparin 60 MG/0.6 ML SYRINGE SQ SCH (17:19)
[2017-11-17] MEDS: *HR* Acetaminophen w/Cod 300-30 mg 1 TAB TABLET PO PRN (23:47)
[2017-11-18 03:33] LABS: INR 1.5; Prothrombin Time 15.8 Seconds (9.4-12.1)
[2017-11-18] MEDS: *HR* Enoxaparin 60 MG/0.6 ML SYRINGE SQ SCH ×2 (04:25→16:43)
[2017-11-18] MEDS: Spironolactone 25 MG TABLET PO SCH (09:03)
--- NOTE | 2017-11-18 15:23 | Internal Med Progress Note ---
Date of Encounter: 11/18/17 Time of Encounter: 03:00 - Assessment and plan (1) Cardiomyopathy Current Visit: No Status: Inactive Assessment and plan: cardiomyopathy currently on Coreg, lisinopril and Aldactone. Euvolemic at present. Does not need diuretics. Awaiting LifeVest for primary prevention. 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 Monitor off antibiotics. (4) DVT prophylaxis Current Visit: Yes Status: Acute Assessment and plan: Already on AC (5) Left ventricular thrombosis Current Visit: Yes Status: Acute Assessment and plan: Continue Lovenox and Coumadin bridge. - Time Spent With Patient Total time spent is greater than 50% in coordination of care (as documented) at patient's floor/unit and/or counseling patient: 25 - 35 minutes - Subjective Interval history: Patient reports no new complaints. - Constitutional Vitals: Temp Pulse Resp BP Pulse Ox 97.4 F L 84 16 111/77 99 11/18/17 11:20 11/18/17 11:20 11/18/17 11:20 11/18/17 11:20 11/18/17 11:20 Exam: Physical exam Gen: Comfortable, laying in bed, in no visible distress HEENT: Normocephalic, atraumatic. No conjunctival icterus. Moist oral mucosa. Neck: Supple Lungs: Clear to auscultation, no foreign sounds Heart: Normal S1-S2, no murmurs rubs or gallops Abdomen: Normoactive bowel sounds, no guarding rigidity or tenderness Extremities: No edema clubbing or cyanosis Neuro: Alert oriented 3, no focal deficits Skin: No skin lesions Internal Medicine: Result - Labs CBC & Chem 7: 11/14/17 09:55 11/14/17 09:55 - ABG Interpretation ABG results: PT/INR, D-dimer PT 15.8 Seconds (9.4-12.1) H 11/18/17 03:00 - VTE Reasons for not Prescribing Prophylaxis: Not indicated-Anticoagulated or INR therapeutic Consult Discharge Plan - Plan Referrals: Vivien Mitchell MUSEUM EDUCATOR [Advanced Practice Nurse] - 11/23/17 3:30 pm (Please follow up as scheduled on Monday. Please bring your Insurance card, photo ID and your bottles of all medications that you are currently taking. Location of this appointment will be at [facility]) Prescriptions: Enoxaparin [Lovenox] 50 mg SQ Q12HCO #10 syringe Atorvastatin [Lipitor] 20 mg PO HS #60 tablet Carvedilol [Coreg] 25 mg PO BIDWM #60 tablet Furosemide [Lasix] 20 mg PO DAILY PRN #30 tablet PRN Reason: Edema Lisinopril [Zestril] 5 mg PO DAILY #30 tablet Spironolactone [Aldactone] 25 mg PO DAILY #30 tablet Warfarin [Coumadin] 5 mg PO 1800 #30 tablet
[2017-11-18] MEDS ORDERED: *HR* Warfarin 3 MG TABLET PO ONE (18:00)
[2017-11-18] MEDS: *HR* Acetaminophen w/Cod 300-30 mg 1 TAB TABLET PO PRN (19:56)
[2017-11-19] MEDS: *HR* Enoxaparin 60 MG/0.6 ML SYRINGE SQ SCH ×2 (06:20→17:08)
[2017-11-19 07:03] LABS: INR 1.9; Prothrombin Time 20.3 Seconds (9.4-12.1)
[2017-11-19] MEDS: Spironolactone 25 MG TABLET PO SCH (08:45)
--- NOTE | 2017-11-19 09:20 | Internal Med Progress Note ---
Date of Encounter: 11/19/17 Time of Encounter: 09:25 - Assessment and plan (1) Cardiomyopathy Current Visit: No Status: Inactive Assessment and plan: cardiomyopathy currently on Coreg, lisinopril and Aldactone. Euvolemic at present. Awaiting LifeVest for primary prevention. 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 (4) History of UTI Current Visit: No Status: Acute Assessment and plan: Pending urine cultures. Monitor off antibiotics. (5) DVT prophylaxis Current Visit: Yes Status: Acute Assessment and plan: Already on AC - Time Spent With Patient Total time spent is greater than 50% in coordination of care (as documented) at patient's floor/unit and/or counseling patient: 25 - 35 minutes - Subjective Interval history: Patient reports no new complaints. No events overnight. - Constitutional Vitals: Temp Pulse Resp BP Pulse Ox 97.6 F 77 17 114/78 100 11/19/17 06:58 11/19/17 06:58 11/19/17 06:58 11/19/17 06:58 11/19/17 06:58 Exam: Physical exam Gen: Comfortable, laying in bed, in no visible distress HEENT: Normocephalic, atraumatic. No conjunctival icterus. Moist oral mucosa. Neck: Supple Lungs: Clear to auscultation, no foreign sounds Heart: Normal S1-S2, no murmurs rubs or gallops Abdomen: Normoactive bowel sounds, no guarding rigidity or tenderness Extremities: No edema clubbing or cyanosis Neuro: Alert oriented 3, no focal deficits Skin: No skin lesions Internal Medicine: Result - Labs CBC & Chem 7: 11/14/17 09:55 11/14/17 09:55 - ABG Interpretation ABG results: PT/INR, D-dimer PT 20.3 Seconds (9.4-12.1) H 11/19/17 06:51 - VTE Reasons for not Prescribing Prophylaxis: Not indicated-Anticoagulated or INR therapeutic Consult Discharge Plan - Plan Referrals: Vivien Mitchell COAL TOWER OPERATOR [Advanced Practice Nurse] - 11/23/17 3:30 pm (Please follow up as scheduled on Monday. Please bring your Insurance card, photo ID and your bottles of all medications that you are currently taking. Location of this appointment [facility] at [facility]) Prescriptions: Enoxaparin [Lovenox] 50 mg SQ Q12HCO #10 syringe Atorvastatin [Lipitor] 20 mg PO HS #60 tablet Carvedilol [Coreg] 25 mg PO BIDWM #60 tablet Furosemide [Lasix] 20 mg PO DAILY PRN #30 tablet PRN Reason: Edema Lisinopril [Zestril] 5 mg PO DAILY #30 tablet Spironolactone [Aldactone] 25 mg PO DAILY #30 tablet Warfarin [Coumadin] 5 mg PO 1800 #30 tablet
[2017-11-19] MEDS ORDERED: *HR* Warfarin 5 MG TABLET PO ONE (18:00)
[2017-11-19] MEDS: *HR* Acetaminophen w/Cod 300-30 mg 1 TAB TABLET PO PRN (20:31)
[2017-11-20] MEDS: *HR* Enoxaparin 60 MG/0.6 ML SYRINGE SQ SCH (04:57)
[2017-11-20 05:30] LABS: INR 2.1; Prothrombin Time 22.7 Seconds (9.4-12.1)
[2017-11-20 07:34] VITALS: BP 115/81
[2017-11-20] MEDS: Spironolactone 25 MG TABLET PO SCH (09:49)
--- NOTE | 2017-11-20 11:02 | Discharge Summary ---
Orders not resulted at time of discharge: Pending orders 11/21/17 04:00 PT/INR [Prothrombin Time INR] [COAG] AM 0400 11/22/17 04:00 PT/INR [Prothrombin Time INR] [COAG] AM 0400 11/23/17 04:00 PT/INR [Prothrombin Time INR] [COAG] AM 0400 11/24/17 04:00 PT/INR [Prothrombin Time INR] [COAG] AM 0400 11/25/17 04:00 PT/INR [Prothrombin Time INR] [COAG] AM 040 Date of Encounter: 11/20/17 Time of Encounter: 11:00 - Discharge Diagnosis (1) dilated cardiomyopathy Priority: Primary Status: Acute Comments: Diagnosed cardiac myopathy clinically compensated (2) Polysubstance (including opioids) dependence, daily use Priority: Secondary Status: Acute Assessment and Plan: Chronic use (3) Left ventricular thrombosis Priority: Secondary Status: Acute Assessment and Plan: Patient inr is now therapeutic and she will be discharged Hospital course: Ms. Manley is a 22 year old female - Time Spent with Patient Total time spent providing and/or coordinating discharge services: - Discharge Medications Prescriptions: Enoxaparin [Lovenox] 50 mg SQ Q12HCO #10 syringe Atorvastatin [Lipitor] 20 mg PO HS #60 tablet Carvedilol [Coreg] 25 mg PO BIDWM #60 tablet Furosemide [Lasix] 20 mg PO DAILY PRN #30 tablet PRN Reason: Edema Lisinopril [Zestril] 5 mg PO DAILY #30 tablet Spironolactone [Aldactone] 25 mg PO DAILY #30 tablet Warfarin [Coumadin] 5 mg PO 1800 #30 tablet Home Medications: Atorvastatin [Lipitor] 20 mg PO HS #60 tablet 11/17/17 [Rx] Carvedilol [Coreg] 25 mg PO BIDWM #60 tablet 11/17/17 [Rx] Enoxaparin [Lovenox] 50 mg SQ Q12HCO #10 syringe 11/17/17 [Rx] Furosemide [Lasix] 20 mg PO DAILY PRN #30 tablet 11/17/17 [Rx] Lisinopril [Zestril] 5 mg PO DAILY #30 tablet 11/17/17 [Rx] Spironolactone [Aldactone] 25 mg PO DAILY #30 tablet 11/17/17 [Rx] Warfarin [Coumadin] 5 mg PO 1800 #30 tablet 11/17/17 [Rx] Allergies/Adverse Reactions: 3 Allergy/AdvReac Type Severity Reaction Status Date / Time No Known Allergies Allergy Verified 11/14/17 12:04 Date of admission: 11/16/17 09:28 Primary care physician: PCP NONE Consults: 11/14/17 10:12 Consult to Machine Chocolate Molder [CONS] Routine Reason for SW Consult: d/c plan 11/15/17 09:16 Consult for Pharmacy Education [CONS] Routine Reason for Consult: Coumadin bridging Call Completed: No Discharging clinician: Meg Santo Anticipated date of discharge: 11/20/17 - Constitutional Vitals: Temp Pulse Resp BP Pulse Ox 98 F 78 15 115/81 99 11/20/17 07:31 11/20/17 07:31 11/20/17 07:31 11/20/17 07:31 11/20/17 07:31 - Patient Status Disposition: Home, Self-Care Functional capacity at discharge: independent ambulation Overall status at discharge: patient is progressing back to baseline - Discharge Instructions - Diet and Activity Activity: increase activity as tolerated Diet: advance to your usual diet - VTE Reasons for not Prescribing Prophylaxis: Not indicated-Anticoagulated or INR therapeutic
[2017-11-20] MEDS ORDERED: *HR* Warfarin 5 MG TABLET PO ONE (18:00)
== END 2017-11-20 12:20 | disposition home or self-care (01) | DRG 205 ==
LOC: 2SOUTHHOLD → SUATTDRO 05:13 → 2ANU 11-16 15:01
PROVIDERS: ADMIT Internal Medicine; ATTEND Internal Medicine

== ENCOUNTER 2022-02-16 18:03 | Inpatient (IN) ==
[2022-02-16] MEDS ORDERED: NIFEdipine Immed Rel 10 MG CAPSULE PO ONE (18:11)
[2022-02-16 18:41] LABS: Basophils % 0.4 %; Eosinophils # 0.2 K/mcL (0.0-0.6); Eosinophils % 2.2 %; Hematocrit 35.1 % (35.3-44.9); Hemoglobin 12.2 g/dL (11.5-15.4); Immature Granulocytes % 0.8 % (0-4); Lymphocytes # 1.8 K/mcL (0.6-4.6); Mean Corpuscular HGB Conc 34.8 g/dL (31.6-35.5); Mean Corpuscular Hemoglobin 29.9 pg (28.0-33.3); Mean Platelet Volume 9.6 fL (9.4-12.4); Monocytes # 0.7 K/mcL (0.0-1.3); Monocytes % 8.1 %; Neutrophils # 5.6 K/mcL (1.6-8.9); Platelet Count 220 K/mcL (140-400); Red Blood Count 4.08 M/mcL (3.82-4.97); Red Cell Distribution Width 12.4 % (11.5-14.5); Segmented Neutrophils % 66.5 %; White Blood Count 8.4 K/mcL (4.3-11.1)
[2022-02-16 18:50] LABS: Creatinine,Urine 238 mg/dL; Protein/Creatinine Ratio,Urine 0.21 mg/mg (0.00-0.20)
[2022-02-16 18:52] LABS: Amphetamine Screen,Urine Negative ng/mL (Cutoff=1000); Barbiturate Screen,Urine Negative ng/mL (Cutoff=200); Benzodiazepines Screen,Urine Negative ng/mL (Cutoff=200); Cannabinoid Screen,Urine Positive ng/mL (Cutoff = 50); Cocaine Screen,Urine Negative ng/mL (Cutoff= 300); Opiate Screen,Urine Negative ng/mL (Cutoff=300); Phencyclidine Screen,Urine Negative ng/mL (Cutoff=25)
[2022-02-16 19:02] LABS: Alanine Aminotransferase 8 Units/L (7-52); Aspartate Amino Transferase 14 Units/L (13-39); BUN/Creatinine Ratio 9 (6-26); Blood Urea Nitrogen 6 mg/dL (6-20); Lactate Dehydrogenase 153 Units/L (140-271); Uric Acid 5.2 mg/dL (2.3-7.6)
== END 2022-02-16 19:08 | disposition short-term general hospital (02) | DRG 566 ==
LOC: 1NENULAB
PROVIDERS: ADMIT Advanced Practice Midwife; ATTEND Advanced Practice Midwife